=== PATIENT | female | born 1940 | race Caucasian/White ===

== ENCOUNTER 2018-02-07 10:40 | Inpatient (IN) | payer OTHER, MEDICARE ==
[~2018-02-07] VITALS: Ht 157.5 cm; Wt 69.2 kg
[~2018-02-07 10:40] MED LIST: AVAPRO300 MG PO; DILTIAZEM HCL120 M2 PO; ENBREL25 MG SC; ENBREL50 MG/ML SQ; RESTASIS0.051 OU; SYNTHROID0.075 MG PO; SYNTHROID0.1 MG PO; VYTORIN1 TA1; ZANTAC 150150 MG PO; ZOLOFT50 MG PO; [UNRECOGNIZED DRUG - OTHER] PO
[2018-02-07 11:25] LABS: BASOPHIL % 0.4 % (0-2); PLATELET COUNT 291 x10^3mcL (130-400)
[2018-02-07 11:28] LABS: CARBON DIOXIDE 26.6 mmol/L (21-32); CHLORIDE SERUM 107 mmol/L (98-107); CREATININE SERUM 0.9 mg/dL (0.6-1.0); GLUCOSE SERUM 99 mg/dL (74-106); POTASSIUM SERUM 3.6 mmol/L (3.5-5.1); SODIUM SERUM 141 mmol/L (136-145)
[2018-02-07 11:33] LABS: ALBUMIN 3.5 g/dL (3.4-5.0); ALKALINE PHOSPHATASE 82 U/L (46-116); ALT/SGPT 15 U/L (14-59); AST/SGOT 18 U/L (15-37); BILIRUBIN TOTAL 0.34 mg/dL (0.20-1.00); TOTAL PROTEIN, SERUM 7.6 g/dL (6.4-8.2)
[2018-02-07 11:34] LABS: RED CELL DISTRIBUTION WIDTH 15.8 % (11.5-14.5)
[2018-02-07] MEDS ORDERED: AVAPRO300 MG PO (13:08)
[2018-02-07] MEDS ORDERED: ZOCOR20 MG PO (13:09)
[2018-02-07] MEDS ORDERED: ZOLOFT50 MG PO (13:10)
[2018-02-07] MEDS ORDERED: ZANTAC 150150 MG PO (13:11)
[2018-02-07] MEDS ORDERED: COMINH INH (13:11)
[2018-02-07] MEDS ORDERED: XOPENEX1.25 MG/3 IH (13:12)
[2018-02-07] MEDS ORDERED: ZYR5 PO (13:13)
[2018-02-07] MEDS ORDERED: ACETAMINOPHEN-T1 TAB PO (13:13)
[2018-02-07 14:04] VITALS: BP 163/83
[2018-02-07 14:12] LABS: CHOLESTEROL/HDL RATIO 3.4; PHOSPHOROUS 2.8 mg/dL (2.5-4.9)
[2018-02-07 14:15] VITALS: Ht 157.5 cm; Wt 69.2 kg
[2018-02-07 14:19] LABS: T3 TOTAL 1.14 ng/mL
[2018-02-07 14:21] LABS: UA SPECIFIC GRAVITY <=1.005 (1.005-1.035); microscopic required? YES; urine erythrocyte NEGATIVE (NEGATIVE)
[2018-02-07 14:23] LABS: FREE T4 0.81 ng/dL (0.76-1.46); FREE THYROXINE INDEX 2.1 ug/dL (1.4-4.5); T4(THYROXINE) 6.6 ug/dL (4.7-13.3)
[2018-02-07 15:01] VITALS: BP 176/87
[2018-02-07 15:40] VITALS: BP 176/87
[2018-02-07 18:26] VITALS: BP 157/91
[2018-02-07 20:12] VITALS: BP 137/79
[2018-02-08 05:23] VITALS: BP 135/62
[2018-02-08 09:30] VITALS: BP 146/78
[2018-02-08 11:02] LABS: BASOPHIL % 0.1 % (0-2); PLATELET COUNT 286 x10^3mcL (130-400)
[2018-02-08 11:46] LABS: CALCIUM 8.9 mg/dL (8.5-10.1); CARBON DIOXIDE 24.9 mmol/L (21-32); CHLORIDE SERUM 110 mmol/L (98-107); CREATININE SERUM 0.8 mg/dL (0.6-1.0); GLUCOSE SERUM 82 mg/dL (74-106); MAGNESIUM 2.1 mg/dL (1.8-2.4); PHOSPHOROUS 2.5 mg/dL (2.5-4.9); SODIUM SERUM 142 mmol/L (136-145)
[2018-02-08 13:42] VITALS: BP 170/86
[2018-02-08 17:53] VITALS: BP 141/70
[2018-02-08 20:31] VITALS: BP 164/87
[2018-02-09 04:57] VITALS: BP 152/95
[2018-02-09 06:34] LABS: PLATELET COUNT 268 x10^3mcL (130-400)
[2018-02-09 06:44] LABS: CALCIUM 8.6 mg/dL (8.5-10.1); CARBON DIOXIDE 23.5 mmol/L (21-32); CHLORIDE SERUM 111 mmol/L (98-107); CREATININE SERUM 0.8 mg/dL (0.6-1.0); GLUCOSE SERUM 90 mg/dL (74-106); POTASSIUM SERUM 3.5 mmol/L (3.5-5.1); SODIUM SERUM 141 mmol/L (136-145)
[2018-02-09 07:01] LABS: RED CELL DISTRIBUTION WIDTH 15.7 % (11.5-14.5)
[2018-02-09 07:54] LABS: ATYPICAL LYMPH 1 %; BAND NEUTROPHIL 1 % (0-10); BASOPHIL 0 % (0-2); MONOCYTE 3 % (0-7); SEGMENTED NEUTROPHILS 90 % (37-75)
[2018-02-09 07:55] LABS: PLATELET MORPHOLOGY PLATELETS NORMAL; rbc morphology (normal/abnorm) ABNORMAL (NORMAL)
[2018-02-09 09:38] VITALS: BP 145/65
[2018-02-09 13:11] VITALS: BP 153/68
[2018-02-09 17:06] VITALS: BP 152/76
[2018-02-09 21:40] VITALS: BP 114/61
[2018-02-10] VITALS (7 sets, daily range): BP systolic 131–152; BP diastolic 67–88
[2018-02-10 06:17] LABS: CALCIUM 8.2 mg/dL (8.5-10.1); CARBON DIOXIDE 25.6 mmol/L (21-32); CHLORIDE SERUM 111 mmol/L (98-107); CREATININE SERUM 0.8 mg/dL (0.6-1.0); GLUCOSE SERUM 86 mg/dL (74-106); PHOSPHOROUS 2.9 mg/dL (2.5-4.9); POTASSIUM SERUM 3.8 mmol/L (3.5-5.1); SODIUM SERUM 143 mmol/L (136-145)
[2018-02-10 06:18] LABS: BASOPHIL % 0.3 % (0-2); PLATELET COUNT 246 x10^3mcL (130-400)
[2018-02-10 07:20] LABS: RED CELL DISTRIBUTION WIDTH 15.3 % (11.5-14.5)
[2018-02-10] MEDS ORDERED: MEDDP PO (14:52)
== END 2018-02-10 16:45 | disposition home or self-care (01) | DRG 189 ==
LOC: ED 10:40 → DU 12:59 → MU 12:59 → DU 16:00
PROVIDERS: Family Medicine; Internal Medicine
DX: J96.01 Acute respiratory failure with hypoxia (principal); J45.901 Unspecified asthma with (acute) exacerbation; E87.3 Alkalosis; I10 Essential (primary) hypertension; E78.5 Hyperlipidemia, unspecified; E89.0 Postprocedural hypothyroidism; L40.50 Arthropathic psoriasis, unspecified; Z68.28 Body mass index [BMI] 28.0-28.9, adult
CPT/HCPCS: 36600; 83880; 84439; 87046; 87046-59; 97110-GP; 97535-GP; J2920; J2930; J7030; J7613; J7644; Q0092

== ENCOUNTER → 2018-11-18 | Outpatient (CLI) | payer OTHER, MEDICARE ==
[~2018-11-18] MED LIST changes: +ACETAMINOPHEN-T1 TAB PO; +COMINH INH; +MEDDP PO; +XOPENEX1.25 MG/3 IH; +ZOCOR20 MG PO; +ZYR5 PO
--- NOTE | 2018-11-18 10:55 | NUR ---
OP LEXISCAN DONE
== END | disposition home or self-care (01) ==
LOC: NM 07:00
DX: I25.10 Atherosclerotic heart disease of native coronary artery without angina pectoris (principal)
CPT/HCPCS: A9500; J2785